=== PATIENT | female | born 1935 | race Caucasian/White ===

== ENCOUNTER → 2020-01-24 | Outpatient (CLI) | payer MEDICARE, BC ==
[2015-11-15 07:54] VITALS: BP 129/55
[~2020-01-24] MED LIST: OMEP20TA8 PO; RAMI5CAP33 PO; VIT1TABL32 PO
--- NOTE | 2020-01-25 10:43 | RAD ---
Limited abdominal ultrasound INDICATION: Lump swelling and redness in the mid upper abdomen with no visible wound in the skin and no history of surgery. TECHNIQUE: Grayscale and color Doppler imaging of the area of palpable concern was performed. FINDINGS: This identifies a 5.2 x 4.8 x 3.0 cm mixed solid and cystic mass in the abdomen showing no internal vascularity in the solid component. There is no evidence of gut signature or peristalsis no obvious communication with the peritoneal cavity. IMPRESSION: Mixed solid and cystic mass in the ventral abdominal wall with limited internal vascularity. This is incompletely characterized on ultrasound and a neoplasm has not been confidently excluded. Recommend contrast enhanced abdomen and pelvis CT when clinically feasible in further evaluation. Electronically signed by: Neo Ogden MD (01/25/2020 10:40 AM) [facility]
== END ==
LOC: US 15:49
PROVIDERS: ATTEND Family Medicine
DX: R19.00 Intra-abdominal and pelvic swelling, mass and lump, unspecified site (principal)
CPT/HCPCS: 76705